=== PATIENT | female | born 1970 | race African-American/Black ===

== ENCOUNTER 2023-10-21 22:25 | Emergency (ER) | payer OTHER, SELFPAY ==
[2023-10-22] MEDS ORDERED: Dexamethasone 4 MG TAB ONE (01:09)
== END 2023-10-22 02:15 | disposition home or self-care (01) ==
LOC: CSHERS 22:25
DX: R13.10 Dysphagia, unspecified (principal)
CPT/HCPCS: 87081; 87430; 99283; J8540